=== PATIENT | female | born 1960 | race Caucasian/White ===

== ENCOUNTER 2016-08-31 14:40 | Outpatient (CLI) | payer OTHER | END 2016-08-31 14:41 | disposition home or self-care (01) | DX: Z79.890 Hormone replacement therapy (principal) ==

== ENCOUNTER 2017-10-31 18:19 | Emergency (ER) | payer OTHER ==
[2017-10-31 18:33] VITALS: BP 127/92
[2017-10-31] MEDS ORDERED: IBUPROFEN 800 MG TABLET PO STA (18:56)
--- NOTE | 2017-10-31 19:27 | XRAY Preliminary Report ---
Exam: XR SHOULDER 3 VIEW RT IMPRESSION: 1. No acute abnormality. 2. 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 [facility] SITE ID: [id number]
--- NOTE | 2017-10-31 19:28 | XRAY Report ---
EXAM: RIGHT SHOULDER RADIOGRAPHY EXAM DATE: 10/31/2017 07:11 PM. CLINICAL HISTORY: R shoulder pain s/p reaching above head. COMPARISON: No shoulder comparison. Right clavicle 02/27/2015. TECHNIQUE: 3 views. FINDINGS: Bones: Normal. No fracture or bone lesion. Joints: The acromioclavicular and glenohumeral joints are normally aligned. Moderately severe acromio clavicular joint degenerative disease again demonstrated with prominent superior spurring and some pr obable adjacent but chronic-appearing ossicles, progressed from 2014. Soft tissues: The visualized hemithorax is unremarkable. No soft tissue swelling. A garment clip proj ects above the humeral head. IMPRESSION: 1. No acute abnormality. 2. 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 [facility] Referring Provider Line: [phone] SITE ID: [id number]
--- NOTE | 2017-10-31 19:42 | ED Physician Documentation ---
History of Present Illness - Stated complaint Stated Complaint: RT SHOULDER PX - Chief complaint Chief Complaint: Ext Problem - History obtained from History obtained from: Patient - History of Present Illness Timing: Today Pain level max: 6 Pain level now: 6 Improved by: rest Worsened by: moving - Additonal information Additional information: Patient was at work today, lifting her right arm up and felt a grinding sensation and pain. Now continued pain. Review of Systems Musculoskeletal: denies: Neck pain, Back pain Neurologic: denies: Focal weakness, Numbness, Headache PD PAST MEDICAL HISTORY - Past Medical History Cardiovascular: None, Hypertension Respiratory: None Neuro: None Endocrine/Autoimmune: None GI: None : None HEENT: None Psych: None Musculoskeletal: Osteoarthritis, Chronic back pain, Other Derm: None - Past Surgical History Past Surgical History: Yes General: Cholecystectomy - Present Medications Home Medications: Ambulatory Orders Medication Instructions Recorded Confirmed Estradiol 10/31/17 Furosemide [Lasix] 60 10/31/17 Hydrocodone/Acetaminophen 1 - 2 each PO Q6H PRN #14 tablet 10/31/17 [Hydrocodon-Acetaminophen 5-325] Meloxicam [Mobic] 15 mg PO DAILY PRN #20 tablet 10/31/17 - Allergies Allergies/Adverse Reactions: Allergies Allergy/AdvReac Type Severity Reaction Status Date / Time No Known Drug Allergies Allergy Verified 02/24/14 16:49 - Social History Does the pt smoke?: No Smoking Status: Never smoker Does the pt drink ETOH?: No Does the pt have substance abuse?: No - Immunizations Immunizations are current?: Yes - POLST Patient has POLST: No PD ED PE NORMAL - Vitals Vital signs reviewed: Yes - General General: Alert and oriented X 3, No acute distress - HEENT HEENT: Moist mucous membranes - Neck Neck: Supple, no meningeal sign - Cardiac Cardiac: RRR - Respiratory Respiratory: No respiratory distress, Clear bilaterally - Derm Derm: Warm and dry - Extremities Extremities: Other (no bony tenderness over the R shoulder. NVI. Pain with ROM. normal appearing biceps and triceps.) - Neuro Neuro: Alert and oriented X 3 Results - Vitals Vitals: Vital Signs - 24 hr 10/31/17 18:27 Temperature 36.4 C L Heart Rate 75 Respiratory 18 Rate Blood Pressure 127/92 H O2 Saturation 95 Oxygen O2 Source Room air - Rads (name of study) R shoulder xray Radiology: Prelim report reviewed, EMP read contemporaneously, See rad report ( No acute abnormality. 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 ) PD MEDICAL DECISION MAKING - ED course Complexity details: reviewed results, re-evaluated patient, considered differential, d/w patient, d/w family ED course: Patient is a 57-year-old female who presents to the emergency department with Right shoulder pain today. Possible osteoarthritis versus possible rotator cuff injury. Placed in a sling for comfort and will place on pain medication and anti-inflammatories for home. Neurovascularly intact. We will have her reassessed when her pain is decreased with her doctor. Patient counseled regarding signs and symptoms for which I believe and urgent re-evaluation would be necessary. Patient with good understanding of and agreement to plan and is comfortable going home at this time This document was made in part using voice recognition software. While efforts are made to proofread this document, sound alike and grammatical errors may occur. Departure - Departure Disposition: Home, Self Care Clinical Impression: Shoulder sprain Qualifiers: Encounter type: initial encounter Shoulder sprain type: unspecified sprain Laterality: right Qualified Code(s): S43.401A - Unspecified sprain of right shoulder joint, initial encounter Osteoarthritis Qualifiers: Osteoarthritis location: shoulder Osteoarthritis type: unspecified Laterality: right Qualified Code(s): M19.011 - Primary osteoarthritis, right shoulder Condition: Good Instructions: ED Sprain Shoulder Follow-Up: Melissa Sylvester PA-C [Primary Care Provider] - Within 1 week Prescriptions: Hydrocodone/Acetaminophen [Hydrocodon-Acetaminophen 5-325] 1 - 2 each PO Q6H PRN #14 tablet PRN Reason: pain Meloxicam [Mobic] 15 mg PO DAILY PRN #20 tablet PRN Reason: pain Comments: Wear the sling for the next 2-3 days. Return if you worsen. Start to move your shoulder in small circles over the next 2 days. Follow-up with your doctor later this week for repeat evaluation. Do not drink alcohol or drive while on narcotic pain medicine. Note that many narcotic pain relievers also contain tylenol/acetaminophen. Please ensure that your total dose of acetaminophen from all sources does not exceed 3 grams (3000mg) per day. You may constipated on this medication, take a stool softener such as "Colace" twice a day while you are on it. Also recommend a [id number]-[id number] laxative such as senna or MiraLAX any day that you do not have a bowel movement. If you received narcotic pain medication in the emergency department, do not drive or operate machinery for the next 24 hours. Forms: Activity restrictions Discharge Date/Time: 10/31/17 20:28
[2017-10-31] MEDS ORDERED: HYDROcod/ACETAM 5/325 MG TABLET PO STA (20:06)
== END 2017-10-31 20:28 | disposition home or self-care (01) ==
LOC: ED 18:19
DX: S43.401A Unspecified sprain of right shoulder joint, initial encounter (principal); X50.9XXA Other and unspecified overexertion or strenuous movements or postures, initial encounter; Y99.0 Civilian activity done for income or pay; M19.011 Primary osteoarthritis, right shoulder; I10 Essential (primary) hypertension
CPT/HCPCS: 73030; 99283; A9270

== ENCOUNTER 2019-09-21 11:53 | Day surgery (SDC) | payer BC ==
[2019-09-21] MEDS ORDERED: LACTATED RINGERS 1,000 ML IV ONE (11:56)
[2019-09-21] MEDS ORDERED: LIDO GARGLE 30 ML BOTTLE ONE (12:41)
[2019-09-21] MEDS ORDERED: MIDAZOLAM 2 MG/2 ML VIAL IVP ONE (12:52)
[2019-09-21] MEDS ORDERED: fentaNYL 250 MCG/5 ML VIAL IVP ONE (12:52)
[2019-09-21] MEDS ORDERED: LIDO GARGLE 30 ML BOTTLE PO ONE (13:00)
[2019-09-21 14:09] VITALS: BP 116/78
== END 2019-09-21 11:54 | disposition home or self-care (01) ==
LOC: SDS 11:53
PROVIDERS: ATTEND Surgery
PROC: 0DB68ZX Excision of Stomach, Via Natural or Artificial Opening Endoscopic, Diagnostic (ICD-10-PCS; 2019-09-21)
PROC: 0DB48ZX Excision of Esophagogastric Junction, Via Natural or Artificial Opening Endoscopic, Diagnostic (ICD-10-PCS; 2019-09-21)
PROC: 0DJD8ZZ Inspection of Lower Intestinal Tract, Via Natural or Artificial Opening Endoscopic (ICD-10-PCS; principal; 2019-09-21 12:45)
PROC: 0DB98ZX Excision of Duodenum, Via Natural or Artificial Opening Endoscopic, Diagnostic (ICD-10-PCS; 2019-09-21 12:45)
DX: Z12.11 Encounter for screening for malignant neoplasm of colon (principal); K57.30 Diverticulosis of large intestine without perforation or abscess without bleeding; K22.70 Barrett's esophagus without dysplasia; K29.70 Gastritis, unspecified, without bleeding; K44.9 Diaphragmatic hernia without obstruction or gangrene; K64.8 Other hemorrhoids; K64.4 Residual hemorrhoidal skin tags; K21.9 Gastro-esophageal reflux disease without esophagitis; K59.09 Other constipation; I10 Essential (primary) hypertension; E78.5 Hyperlipidemia, unspecified; J45.909 Unspecified asthma, uncomplicated; E66.9 Obesity, unspecified; Z68.41 Body mass index [BMI] 40.0-44.9, adult; Z79.82 Long term (current) use of aspirin
CPT/HCPCS: 43239; 45378; 87081; A9270; J3010; J7120

== ENCOUNTER 2020-07-29 08:01 | Outpatient (CLI) | payer BC ==
--- NOTE | 2020-07-29 11:05 | XRAY Report ---
PROCEDURE: Finger(s) LT INDICATIONS: L THUMB PX TECHNIQUE: AP hand, 2 views of the first finger(s) acquired. COMPARISON: None FINDINGS: Bones: No fractures or dislocations. Moderate to severe first CMC joint osteoarthritic changes are s een with significant joint space narrowing, subchondral sclerosis and cyst formation and marginal ost eophyte formation. Osteoarthritic changes also noted in radiocarpal joint and scaphotrapezial joint. No suspicious bony lesions. Soft tissues: No suspicious soft tissue calcifications. IMPRESSION: Moderate to severe first CMC joint osteoarthritis. No fracture or dislocation. Reviewed by: Niraj Partida MD on 07/29/2020 11:03 AM PST Approved by: Niraj Partida MD on 07/29/2020 11:03 AM PST Station ID: [id number]
== END 2020-07-29 08:02 | disposition home or self-care (01) ==
LOC: DI.N 08:01
PROVIDERS: ATTEND Physician Assistant
DX: M18.12 Unilateral primary osteoarthritis of first carpometacarpal joint, left hand (principal)

== ENCOUNTER 2020-09-05 14:39 | Emergency (ER) | payer OTHER, BC ==
[2020-09-05 14:53] VITALS: BP 161/90
--- NOTE | 2020-09-05 15:05 | ED Physician Documentation ---
History of Present Illness - Stated complaint Stated Complaint: R KNEE INJ - Chief complaint Chief Complaint: Trauma Ext - Additonal information Additional information: 52-year-old female presents the emergency department for evaluation of acute right knee pain. She was walking this morning since then with ambulation she has pain laterally and behind the knee. However she bears full weight with a very minimal gait abnormality. She did have a total knee replacement in 2016. Review of Systems Constitutional: reports: Reviewed and negative Eyes: reports: Reviewed and negative Throat: reports: Reviewed and negative Cardiac: reports: Reviewed and negative Respiratory: reports: Reviewed and negative GI: reports: Reviewed and negative : reports: Reviewed and negative Musculoskeletal: reports: Joint pain (right knee) Neurologic: denies: Generalized weakness, Focal weakness, Numbness PD PAST MEDICAL HISTORY - Past Medical History Cardiovascular: None, Hypertension Respiratory: None Endocrine/Autoimmune: None GI: None : None HEENT: None Psych: None Musculoskeletal: Osteoarthritis, Chronic back pain, Other Derm: None - Past Surgical History Past Surgical History: Yes General: Cholecystectomy - Present Medications Home Medications: Ambulatory Orders Medication Instructions Recorded Confirmed Furosemide [Lasix] 60 mg PO DAILY 10/31/17 09/21/19 Multivitamin [Multivitamins] 1 each PO 09/20/19 Omeprazole 20 mg PO DAILY 09/20/19 09/21/19 - Allergies Allergies/Adverse Reactions: Allergies Allergy/AdvReac Type Severity Reaction Status Date / Time naproxen [From Aleve] Allergy Unknown Verified 09/05/20 14:54 - Social History Does the pt smoke?: No Smoking Status: Never smoker Does the pt drink ETOH?: No Does the pt have substance abuse?: No - Immunizations Immunizations are current?: Yes - POLST Patient has POLST: No PD ED PE EXPANDED - Extremities Extremities: Right knee (Tenderness laterally with palpation. No laxity of stress testing. No swelling effusion. FULL ROM, flexion/extension. bears full weight) Results - Vitals Vitals: Vital Signs - 24 hr 09/05/20 14:48 Temperature 36.2 C L Heart Rate 82 Respiratory 14 Rate Blood Pressure 161/90 H O2 Saturation 96 Oxygen O2 Source Room air - Rads (name of study) right knee Radiology: Final report received PD MEDICAL DECISION MAKING - ED course Complexity details: reviewed results, re-evaluated patient, considered di fferential, d/w patient ED course: 52-year-old female presents emergency department for evaluation of acute right knee pain after a fall after tripping on a curb. She has pain mostly in the right lateral knee. She has a nearly normal gait and no laxity on exam. X-ray does not show any acute fracture or dislocation. The x-ray does suggest a lateral tilt of the patella without known clinical significance. Patient is not tender over her patella. Patient was placed in a articulating knee brace and will be referred to orthopedics for follow-up. Will recommend NSAID medication for analgesia. Will also give crutches to aid in weightbearing and ambulation until pain begins to improve. Emergent return precautions discussed Departure - Departure Disposition: Home, Self Care Clinical Impression: Right knee pain Qualifiers: Chronicity: acute Qualified Code(s): M25.561 - Pain in right knee Condition: Stable Record reviewed to determine appropriate education?: Yes Instructions: ED Sprain Knee Collateral Ligaments Follow-Up: [facility] [Provider Group] Sundar Camacho MD [Primary Care Provider] - Comments: The x-ray of your knee does not show any acute fracture or dislocation. Based on the history of your fall this is most likely a sprain or early internal knee derangement. I would like you to take ibuprofen with food 2-3 times a day to help with discomfort. Wear the knee brace when out of bed to help maintain the stability of your knee. I have given you the phone number to call orthopedics for follow-up however your insurance may require the referral to come from your primary care provider. Please return to the emergency department if you have any swelling, fevers suddenly worse or different pain.
--- NOTE | 2020-09-05 15:15 | XRAY Report ---
PROCEDURE: Knee 3 View RT INDICATIONS: fall; r/o fx TECHNIQUE: 3 views of the right knee acquired. COMPARISON: 11/26/2012. FINDINGS: Bones: A right total knee prosthesis is demonstrated. No fractures or dislocation. No suspicious johnny prosthetic lucencies. There is moderate lateral tilt of the patella. Soft tissues: There is a suspected small joint effusion. IMPRESSION: 1. Right knee prosthesis demonstrated without fracture or dislocation. 2. Moderate lateral tilt of the patella of indeterminate clinical significance. 3. Suspected small joint effusion. Reviewed by: Anibal Valladares MD on 09/05/2020 2:14 PM [place] Approved by: Anibal Valladares MD on 09/05/2020 2:14 PM [place] Station ID: [id number]
== END 2020-09-05 16:11 | disposition home or self-care (01) ==
LOC: ED 14:39
DX: M25.561 Pain in right knee (principal); W10.1XXA Fall (on)(from) sidewalk curb, initial encounter; I10 Essential (primary) hypertension; Z96.651 Presence of right artificial knee joint
CPT/HCPCS: 99281; 99283